=== PATIENT | female | born 1980 | race Caucasian/White ===

== ENCOUNTER 2018-07-24 13:53 | Emergency (ER) | payer SELFPAY ==
[~2018-07-24] VITALS: Ht 162.6 cm; Wt 82.7 kg
[2018-07-24 14:20] VITALS: BP 158/78; PULSE 94; RESP 17; Ht 162.6 cm; Wt 82.7 kg
== END 2018-07-24 17:40 | disposition left against medical advice (07) ==
LOC: FTE 13:53
DX: Z53.21 Procedure and treatment not carried out due to patient leaving prior to being seen by health care provider (principal)